=== PATIENT | male | born 1950 | race Caucasian/White ===

== ENCOUNTER → 2017-08-06 | Outpatient (CLI) | payer MEDICARE | LOC: COL.VAS 11:15 | DX: H53.8 Other visual disturbances (principal); G45.3 Amaurosis fugax ==

== ENCOUNTER 2018-02-26 07:51 | Day surgery (SDC) | payer MEDICARE, OTHER ==
[~2018-02-26] VITALS: Ht 177.8 cm; Wt 76.3 kg
[~2018-02-26 07:51] MED LIST: ASPIRIN E.C. 8181 MG PO; CLARITIN 1010 MG/TAB PO; FLONASEALLERGY NS; POLYMYXIN B/TRIMETH OU; SINGULAIR 110 MG/TAB PO; ZOCOR 20MG20 MG PO
[2018-02-26 08:30] VITALS: BP 116/80; PULSE 55; TEMP 97.5
[2018-02-26 09:25] VITALS: BP 107/78; PULSE 59; TEMP 98.1
[2018-02-26 09:40] VITALS: BP 113/78; PULSE 58
[2018-02-26 09:55] VITALS: BP 106/75; PULSE 60
[2018-02-26 17:43] VITALS: BP 110/73; PULSE 53
== END 2018-02-26 10:07 | disposition home or self-care (01) ==
LOC: SDCO 07:51
DX: Z12.11 Encounter for screening for malignant neoplasm of colon (principal); Z80.3 Family history of malignant neoplasm of breast; K57.30 Diverticulosis of large intestine without perforation or abscess without bleeding; Z79.82 Long term (current) use of aspirin
CPT/HCPCS: OP; J2250; J3010; J7030

== ENCOUNTER → 2018-05-14 | Outpatient (CLI) | payer MEDICARE, OTHER | LOC: COL.RAD 07:08 | DX: J34.89 Other specified disorders of nose and nasal sinuses (principal); R05 Cough | CPT/HCPCS: Q9967 ==

== ENCOUNTER 2018-06-04 13:46 | Day surgery (SDC) | payer MEDICARE, OTHER ==
[~2018-06-04] VITALS: Ht 177.8 cm; Wt 73.6 kg
[2018-06-04 14:24] VITALS: BP 110/63; PULSE 64; TEMP 97.6
[2018-06-04] MEDS ORDERED: PROTONIX 40MG T40 MG PO (14:40)
[2018-06-04] MEDS ORDERED: OMNICEF 300MG300 MG PO (14:40)
[2018-06-04 15:33] VITALS: BP 115/63; PULSE 61; TEMP 97.8
[2018-06-04 15:45] VITALS: BP 112/70; PULSE 60
[2018-06-04 16:00] VITALS: BP 117/80; PULSE 70
== END 2018-06-04 16:20 | disposition home or self-care (01) ==
LOC: SDCO 13:46
DX: K20.9 Esophagitis, unspecified (principal); K44.9 Diaphragmatic hernia without obstruction or gangrene; E78.5 Hyperlipidemia, unspecified; R43.2 Parageusia; R63.4 Abnormal weight loss
CPT/HCPCS: J2250; J3010; J7030

== ENCOUNTER → 2019-02-11 | Outpatient (CLI) | payer MEDICARE, OTHER ==
[~2019-02-11] MED LIST changes: +OMNICEF 300MG300 MG PO; +PROTONIX 40MG T40 MG PO
== END ==
LOC: COL.RAD 09:44
DX: Z01.812 Encounter for preprocedural laboratory examination (principal); M48.02 Spinal stenosis, cervical region; M50.31 Other cervical disc degeneration, high cervical region; I67.82 Cerebral ischemia
CPT/HCPCS: A9585

== ENCOUNTER → 2020-01-08 | Outpatient (CLI) | payer MEDICARE, OTHER ==
[~2020-01-08] VITALS: Ht 177.8 cm; Wt 74.3 kg
[2020-01-08 09:03] VITALS: BP 134/67; PULSE 63
== END ==
LOC: COL.RAD 08:45
DX: E04.1 Nontoxic single thyroid nodule (principal)

== ENCOUNTER → 2020-01-15 | Outpatient (CLI) | payer MEDICARE, OTHER | LOC: COL.RAD 07:27 | DX: R22.1 Localized swelling, mass and lump, neck (principal) | CPT/HCPCS: Q9967 ==